=== PATIENT | female | born 1960 | race Caucasian/White ===

== ENCOUNTER 2017-03-13 14:57 | Emergency (ER) | payer OTHER ==
[~2017-03-13] VITALS: Ht 152.4 cm; Wt 45.4 kg
[2017-03-13] MEDS ORDERED: HYDROCODONE/APAP 5/325MG 1 EACH TABLET ONE (15:11)
--- NOTE | 2017-03-13 15:15 | NUR ---
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
[2017-03-13] MEDS ORDERED: HYDROCODONE/APAP 5/325MG 1 EACH TABLET PO ONE (15:30)
[2017-03-13 16:59] VITALS: BP 127/74
== END 2017-03-13 17:00 | disposition home or self-care (01) ==
LOC: ER 15:00
DX: S22.41XA Multiple fractures of ribs, right side, initial encounter for closed fracture (principal); J44.9 Chronic obstructive pulmonary disease, unspecified; G89.29 Other chronic pain; F32.9 Major depressive disorder, single episode, unspecified; F41.9 Anxiety disorder, unspecified; F17.200 Nicotine dependence, unspecified, uncomplicated; Z88.2 Allergy status to sulfonamides; W18.39XA Other fall on same level, initial encounter; Y93.89 Activity, other specified; Y92.89 Other specified places as the place of occurrence of the external cause; Y99.8 Other external cause status
CPT/HCPCS: 71100; 99284; A4606; Z7610

== ENCOUNTER 2018-05-20 14:03 | Emergency (ER) | payer OTHER ==
[~2018-05-20] VITALS: Ht 152.4 cm; Wt 63.5 kg
[2018-05-20 14:06] VITALS: BP 146/110
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
[2018-05-20] MEDS ORDERED: IBUPROFEN 600 MG TABLET PO ONE ×2 (14:27→14:30)
--- NOTE | 2018-05-20 14:35 | NUR ---
XRAY AT BEDSIDE
--- NOTE | 2018-05-20 15:36 | NUR ---
Patient discharged to home in stable condition. Written and verbal after care instructions given. Patient verbalizes understanding of instruction.
== END 2018-05-20 15:38 | disposition home or self-care (01) ==
LOC: ER 14:07
DX: S52.592A Other fractures of lower end of left radius, initial encounter for closed fracture (principal); R01.1 Cardiac murmur, unspecified; J44.9 Chronic obstructive pulmonary disease, unspecified; F32.9 Major depressive disorder, single episode, unspecified; F41.9 Anxiety disorder, unspecified; G89.4 Chronic pain syndrome; E07.9 Disorder of thyroid, unspecified; F17.200 Nicotine dependence, unspecified, uncomplicated; Z98.890 Other specified postprocedural states; Z88.2 Allergy status to sulfonamides; Y04.8XXA Assault by other bodily force, initial encounter; Y93.89 Activity, other specified; Y92.89 Other specified places as the place of occurrence of the external cause; Y99.8 Other external cause status
CPT/HCPCS: 29125; 29130; 73110; 73130; 99283; A4606; Z7610

== ENCOUNTER 2018-07-21 17:19 | Emergency (ER) | payer OTHER ==
[~2018-07-21] VITALS: Ht 152.4 cm; Wt 59.0 kg
[2018-07-21 17:19] VITALS: BP 119/89
== END 2018-07-21 18:53 | disposition home or self-care (01) ==
LOC: ER 17:25
DX: T20.14XA Burn of first degree of nose (septum), initial encounter (principal); T20.12XA Burn of first degree of lip(s), initial encounter; T20.16XA Burn of first degree of forehead and cheek, initial encounter; T23.101A Burn of first degree of right hand, unspecified site, initial encounter; F10.10 Alcohol abuse, uncomplicated; T31.0 Burns involving less than 10% of body surface; F17.200 Nicotine dependence, unspecified, uncomplicated; R01.1 Cardiac murmur, unspecified; J44.9 Chronic obstructive pulmonary disease, unspecified; G89.29 Other chronic pain; F32.9 Major depressive disorder, single episode, unspecified; F41.9 Anxiety disorder, unspecified; Y90.9 Presence of alcohol in blood, level not specified; Z98.890 Other specified postprocedural states; Z88.2 Allergy status to sulfonamides; X08.8XXA Exposure to other specified smoke, fire and flames, initial encounter; Y93.89 Activity, other specified; Y92.89 Other specified places as the place of occurrence of the external cause; Y99.8 Other external cause status

== ENCOUNTER 2019-09-30 19:17 | Emergency (ER) | payer OTHER ==
[~2019-09-30] VITALS: Ht 152.4 cm; Wt 59.0 kg
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
--- NOTE | 2019-09-30 20:01 | NUR ---
PT stated her ribs would hurt everytime she coughs, laughs, sneezes, or moves. MD at bedside.
--- NOTE | 2019-09-30 20:18 | NUR ---
XRAY AT BEDSIDE
[2019-09-30 21:47] VITALS: BP 128/74
--- NOTE | 2019-09-30 21:47 | NUR ---
Patient discharged to home in stable condition. Written and verbal after care instructions given. Patient verbalizes understanding of instruction and RX. Pt wheeld out of ED.
== END 2019-09-30 21:48 | disposition home or self-care (01) ==
LOC: ER 19:18
DX: S22.41XA Multiple fractures of ribs, right side, initial encounter for closed fracture (principal); K21.9 Gastro-esophageal reflux disease without esophagitis; E78.5 Hyperlipidemia, unspecified; J44.9 Chronic obstructive pulmonary disease, unspecified; M54.9 Dorsalgia, unspecified; G89.4 Chronic pain syndrome; Z88.2 Allergy status to sulfonamides; Z98.890 Other specified postprocedural states; W01.0XXA Fall on same level from slipping, tripping and stumbling without subsequent striking against object, initial encounter; Y93.89 Activity, other specified; Y92.89 Other specified places as the place of occurrence of the external cause; Y99.8 Other external cause status
CPT/HCPCS: 71100-TC

== ENCOUNTER 2019-12-31 14:23 | Emergency (ER) | payer OTHER ==
[~2019-12-31] VITALS: Ht 160 cm; Wt 68.0 kg
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
--- NOTE | 2019-12-31 15:08 | NUR ---
DR EL FOR EVAL.
--- NOTE | 2019-12-31 15:16 | NUR ---
PAGED DR ENAMORADO VIA TEXT
[2019-12-31] MEDS ORDERED: HYDROCODONE/APAP 5/325MG 1 EACH TABLET ONE (15:19)
[2019-12-31] MEDS ORDERED: HYDROCODONE/APAP 5/325MG 1 EACH TABLET PO ONE (15:30)
[2019-12-31 16:10] VITALS: BP 136/84
--- NOTE | 2019-12-31 16:10 | NUR ---
PROVIDED W/ WOUND CARE. Patient discharged to home in stable condition. Written and verbal after care instructions given. Patient verbalizes understanding of instruction.
== END 2019-12-31 16:22 | disposition home or self-care (01) ==
LOC: ER 14:23
DX: S31.811A Laceration without foreign body of right buttock, initial encounter (principal); J44.9 Chronic obstructive pulmonary disease, unspecified; F32.9 Major depressive disorder, single episode, unspecified; F41.9 Anxiety disorder, unspecified; G89.29 Other chronic pain; F17.200 Nicotine dependence, unspecified, uncomplicated; Z98.890 Other specified postprocedural states; Z88.2 Allergy status to sulfonamides; W01.110A Fall on same level from slipping, tripping and stumbling with subsequent striking against sharp glass, initial encounter; Y93.89 Activity, other specified; Y92.89 Other specified places as the place of occurrence of the external cause; Y99.8 Other external cause status

== ENCOUNTER 2021-11-27 15:55 | Emergency (ER) | payer OTHER ==
[~2021-11-27] VITALS: Ht 165.1 cm; Wt 54.4 kg
--- NOTE | 2021-11-27 16:15 | NUR ---
DR CASTILLO AT BEDSIDE FOR EVAL
[2021-11-27 16:18] VITALS: BP 114/75
--- NOTE | 2021-11-27 16:22 | NUR ---
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
[2021-11-27] MEDS ORDERED: HYDROCODONE/APAP 5/325MG TABLET ONE (17:30)
[2021-11-27] MEDS ORDERED: HYDROCODONE/APAP 5/325MG TABLET PO ONE (17:30)
[2021-11-27] MEDS ORDERED: TRAM50TA2 PO (18:10)
--- NOTE | 2021-11-27 19:03 | NUR ---
Patient discharged to home with friend in stable condition. Assisted to friend's car. Written and verbal after care instructions given. Patient verbalizes understanding of instruction.
== END 2021-11-27 19:04 | disposition home or self-care (01) ==
LOC: ER 16:01
DX: S92.411A Displaced fracture of proximal phalanx of right great toe, initial encounter for closed fracture (principal); S90.31XA Contusion of right foot, initial encounter; J44.9 Chronic obstructive pulmonary disease, unspecified; G89.29 Other chronic pain; F32.A Depression, unspecified; F41.9 Anxiety disorder, unspecified; E03.9 Hypothyroidism, unspecified; F17.200 Nicotine dependence, unspecified, uncomplicated; X50.1XXA Overexertion from prolonged static or awkward postures, initial encounter; Y93.01 Activity, walking, marching and hiking; Y92.89 Other specified places as the place of occurrence of the external cause; Y99.8 Other external cause status
CPT/HCPCS: 73630-TC